=== PATIENT | female | born 1965 | race Two or more races ===

== ENCOUNTER → 2017-05-11 | Outpatient (CLI) | payer BC ==
[~2017-05-11] MED LIST: CIPR500 PO; CYCL10 PO; Copegus200 MG PO; LIDO5TP TOP; OXYACE5T PO; OXYC5; RIFA300 PO; RXTRAM50 PO; SOVALDI400 MG PO; SULTRIDS PO; TRAM50 PO; Voltaren100 GM TP
== END ==
LOC: LAB SHORT 14:00
DX: N39.0 Urinary tract infection, site not specified (principal)
CPT/HCPCS: 87077; 87086; 87186

== ENCOUNTER 2019-03-03 09:04 | Day surgery (SDC) | payer BC ==
[~2019-03-03] VITALS: Ht 160 cm; Wt 88.5 kg
[~2019-03-03 09:04] MED LIST changes: +IBUP800; +METF500 PO; -OXYC5; +OXYC5 PO
--- NOTE | 2019-03-03 10:39 | NUR ---
03/03/19 1039 AMANDA FUNG HCG S.G 1.005 TOO DILUTE PATIENT SIGNED REFUSAL FORM DR FARLEY WAS FINE
== END 2019-03-03 11:38 | disposition home or self-care (01) ==
LOC: ORSCSDS 09:04
PROVIDERS: Internal Medicine Gastroenterology
PROC: 0DJ08ZZ Inspection of Upper Intestinal Tract, Via Natural or Artificial Opening Endoscopic (ICD-10-PCS; principal; 2019-03-03 11:00)
DX: Z13.810 Encounter for screening for upper gastrointestinal disorder (principal); I85.00 Esophageal varices without bleeding; K74.60 Unspecified cirrhosis of liver; K21.9 Gastro-esophageal reflux disease without esophagitis; F32.9 Major depressive disorder, single episode, unspecified; E11.9 Type 2 diabetes mellitus without complications; K76.6 Portal hypertension; Z86.19 Personal history of other infectious and parasitic diseases; G47.39 Other sleep apnea; Z79.84 Long term (current) use of oral hypoglycemic drugs; Z79.899 Other long term (current) drug therapy
CPT/HCPCS: 82947; J2704; J7120

== ENCOUNTER 2020-02-09 08:11 | Day surgery (SDC) | payer BC ==
[~2020-02-09] VITALS: Ht 157.5 cm; Wt 98.1 kg
[~2020-02-09 08:11] MED LIST changes: +NADO20 PO; +NASONEX17 G1; +Ranitidine HCl150 M1 PO
--- NOTE | 2020-02-09 10:22 | NUR ---
02/09/20 1022 Olga Harkins PT HAD NEW ONSET OF RIGHT HIP PAIN POST PROCEDURE. DURING POSITIONING FOR EGD ON LEFT SIDE, PT STATED HER HIP HURT AND SHE IS DUE FOR A HIP REPLACEMENT. ADDITIONAL PILLOWS AND REPOSITIONING OFFERED.
== END 2020-02-09 10:18 | disposition home or self-care (01) ==
LOC: ORSCSDS 08:11
PROVIDERS: Internal Medicine Gastroenterology
PROC: 0DJ08ZZ Inspection of Upper Intestinal Tract, Via Natural or Artificial Opening Endoscopic (ICD-10-PCS; principal; 2020-02-09 10:00)
DX: K74.60 Unspecified cirrhosis of liver (principal); Z13.810 Encounter for screening for upper gastrointestinal disorder; I85.00 Esophageal varices without bleeding; K76.6 Portal hypertension; K31.89 Other diseases of stomach and duodenum; K21.9 Gastro-esophageal reflux disease without esophagitis; F32.9 Major depressive disorder, single episode, unspecified; Z86.19 Personal history of other infectious and parasitic diseases; E11.9 Type 2 diabetes mellitus without complications; Z79.84 Long term (current) use of oral hypoglycemic drugs
CPT/HCPCS: 82947; J2704; J7120

== ENCOUNTER 2021-04-13 19:57 | Emergency (ER) | payer BC ==
[~2021-04-13] VITALS: Ht 157.5 cm; Wt 79.8 kg
[~2021-04-13 19:57] MED LIST changes: +FENT200LOZ; +Promethegan12.5 MG PR
[2021-04-13 20:49] LABS: BASOPHILS ABSOLUTE AUTO 0.02 K/mm3 (0.00-0.23); BASOPHILS PERCENT AUTO 0 % (0-2); EOSINOPHILS PERCENT AUTO 0 % (0-6); Hematocrit 39.5 % (33.0-51.0); Hemoglobin 13.3 g/dL (11.5-16.0); IMMATURE GRAN ABSOLUTE AUTO 0.22 K/mm3 (0.00-0.10); IMMATURE GRAN PERCENT AUTO 2 % (0-1); LYMPHOCYTES ABSOLUTE AUTO 1.61 K/mm3 (0.84-5.20); LYMPHOCYTES PERCENT AUTO 15 % (21-46); MONOCYTES ABSOLUTE AUTO 1.11 K/mm3 (0.16-1.47); MONOCYTES PERCENT AUTO 10 % (4-13); Mean Corpuscular HGB 29.7 pg (26.0-34.0); Mean Corpuscular HGB Conc 33.7 g/dL (31.5-36.5); Mean Corpuscular Volume 88 fL (80-100); Mean Platelet Volume 10.3 fL (9.1-12.4); NEUTROPHILS ABSOLUTE AUTO 7.75 K/mm3 (1.96-9.15); NEUTROPHILS PERCENT AUTO 72 % (41-73); Platelet Count 107 K/mm3 (150-400); RDW Coefficient Variation 14.5 % (11.7-14.2); RDW Standard Deviation 46.1 fL (35.1-46.3); Red Blood Cell Count 4.48 M/mm3 (3.80-5.20); White Blood Cell Count 10.71 K/mm3 (4.00-11.30)
[2021-04-13 20:58] LABS: Source, Urine Clean Catch
[2021-04-13 21:02] LABS: Appearance, Urine Hazy (Clear); Bilirubin, Urine Neg (Neg); Blood, Urine Neg (Neg); Color, Urine Yellow (P-Yellow); Glucose Qualitative, Urine Neg (Neg); Ketones, Urine Neg (Neg); Leukocyte Esterase, Urine 1+ (Neg); Nitrite, Urine Neg (Neg); Protein, Urine Neg (Neg); Specific Gravity, Urine 1.015 (1.003-1.022); Urobilinogen, Urine 2+ (Normal)
[2021-04-13 21:13] LABS: Alanine Aminotransfer (ALT/SGP 201 U/L (12-78); Albumin, Blood 2.6 g/dL (3.4-5.0); Albumin/Globulin Ratio 0.8 (0.8-1.8); Alk Phos 580 U/L (50-136); Anion Gap 6 mmol/L (6-16); Aspartate Aminotrans (AST/SGOT 141 U/L (12-37); Bilirubin, Total 1.1 mg/dL (0.1-1.0); Blood Urea Nitrogen 10 mg/dL (8-24); Bun/Creatinine Ratio 22.1 (12.0-20.0); CO2, Blood 28 mmol/L (21-32); Calcium, Blood 8.3 mg/dL (8.5-10.1); Chloride, Blood 104 mmol/L (98-108); Creatinine, Blood 0.45 mg/dL (0.40-1.00); Globulin, Blood 3.1 g/dL (2.2-4.0); Glomerular Filtration Rate >60 (60-); Glucose, Blood 203 mg/dL (70-99); Sodium, Blood 138 mmol/L (136-145); Total Protein, Blood 5.7 g/dL (6.4-8.2)
[2021-04-13 21:16] LABS: Bacteria Few /hpf; Red Blood Cells, Urine 0-2 /hpf (0-2); Squamous Epithelial Cells Few /hpf (Few)
[2021-04-13] MEDS ORDERED: CEPH500 PO (22:23)
== END 2021-04-13 23:04 | disposition home or self-care (01) ==
LOC: ER 19:57
PROVIDERS: Emergency Medicine
DX: N39.0 Urinary tract infection, site not specified (principal); E11.9 Type 2 diabetes mellitus without complications; K76.6 Portal hypertension; Z88.5 Allergy status to narcotic agent; Z88.6 Allergy status to analgesic agent; Z79.899 Other long term (current) drug therapy
CPT/HCPCS: 36415; 80053; 81001; 85025; 87077; 87086; 87186; 96365; 99283-25; A9270; J0696

== ENCOUNTER 2021-04-30 10:21 | Inpatient (IN) | payer BC ==
[~2021-04-30] VITALS: Ht 162.6 cm; Wt 76.9 kg
[~2021-04-30 10:21] MED LIST changes: +CEPH500 PO; -FENT200LOZ; -NADO20 PO; -OXYC5 PO
[2021-04-30 11:24] LABS: BASOPHILS ABSOLUTE AUTO 0.13 K/mm3 (0.00-0.23); BASOPHILS PERCENT AUTO 1 % (0-2); EOSINOPHILS ABSOLUTE AUTO 0.02 K/mm3 (0.00-0.68); EOSINOPHILS PERCENT AUTO 0 % (0-6); Hematocrit 47.7 % (33.0-51.0); Hemoglobin 16.6 g/dL (11.5-16.0); IMMATURE GRAN PERCENT AUTO 2 % (0-1); LYMPHOCYTES ABSOLUTE AUTO 2.84 K/mm3 (0.84-5.20); LYMPHOCYTES PERCENT AUTO 13 % (21-46); MONOCYTES PERCENT AUTO 11 % (4-13); Mean Corpuscular HGB 30.2 pg (26.0-34.0); Mean Corpuscular HGB Conc 34.8 g/dL (31.5-36.5); Mean Corpuscular Volume 87 fL (80-100); Mean Platelet Volume 9.8 fL (9.1-12.4); NEUTROPHILS ABSOLUTE AUTO 16.14 K/mm3 (1.96-9.15); NEUTROPHILS PERCENT AUTO 74 % (41-73); NRBC ABSOLUTE 0.03 K/mm3 (0.00-0.02); NRBC Auto 0.1 /100 WBC (0.0-0.2); Platelet Count 108 K/mm3 (150-400); RDW Coefficient Variation 15.2 % (11.7-14.2); RDW Standard Deviation 47.2 fL (35.1-46.3); White Blood Cell Count 21.93 K/mm3 (4.00-11.30)
[2021-04-30 12:06] LABS: Alanine Aminotransfer (ALT/SGP 74 U/L (12-78); Albumin, Blood 3.3 g/dL (3.4-5.0); Albumin/Globulin Ratio 1.1 (0.8-1.8); Alk Phos 749 U/L (50-136); Anion Gap 13 mmol/L (6-16); Aspartate Aminotrans (AST/SGOT 46 U/L (12-37); Bilirubin, Total 2.9 mg/dL (0.1-1.0); Blood Urea Nitrogen 26 mg/dL (8-24); Bun/Creatinine Ratio 58.2 (12.0-20.0); CO2, Blood 21 mmol/L (21-32); Calcium, Blood 8.5 mg/dL (8.5-10.1); Chloride, Blood 104 mmol/L (98-108); Creatinine, Blood 0.45 mg/dL (0.40-1.00); Globulin, Blood 3.1 g/dL (2.2-4.0); Glomerular Filtration Rate >60 (60-); Glucose, Blood 334 mg/dL (70-99); Potassium, Blood 4.2 mmol/L (3.5-5.5); Sodium, Blood 138 mmol/L (136-145); Total Protein, Blood 6.4 g/dL (6.4-8.2)
[2021-04-30] MEDS ORDERED: METF500 (13:09)
[2021-04-30] MEDS ORDERED: LEVE500 PO (13:31)
--- NOTE | 2021-04-30 18:42 | NUR ---
SHIFT SUMMARY PATIENT ADMITTED FROM ER AT 1745. PATIENT SETTLED INTO ROOM. PATIENT YELLING OUT IN PAIN, MEDICATED PER EMAR. FAMILY AT BEDSIDE TO TRANSLATE. PATIENT ONLY SPEAKS BELARUSIAN. PATIENT DENIES NAUSEA AND SHORTNESS OF BREATH. SEIZURE PADS PLACED. PATIENT ABLE TO SWALLOW MEDS WHOLE WITH APPLESAUCE. PATIENT DID NOT WANT TO EAT DINNER. PATIENT IS PLEASANT AND COOPERATIVE WITH CARE.
[2021-05-01 05:13] LABS: BASOPHILS ABSOLUTE AUTO 0.01 K/mm3 (0.00-0.23); BASOPHILS PERCENT AUTO 0 % (0-2); EOSINOPHILS PERCENT AUTO 0 % (0-6); Hemoglobin 12.3 g/dL (11.5-16.0); IMMATURE GRAN ABSOLUTE AUTO 0.04 K/mm3 (0.00-0.10); IMMATURE GRAN PERCENT AUTO 1 % (0-1); LYMPHOCYTES ABSOLUTE AUTO 1.06 K/mm3 (0.84-5.20); LYMPHOCYTES PERCENT AUTO 22 % (21-46); MONOCYTES ABSOLUTE AUTO 0.26 K/mm3 (0.16-1.47); MONOCYTES PERCENT AUTO 5 % (4-13); Mean Corpuscular HGB 30.1 pg (26.0-34.0); Mean Corpuscular HGB Conc 34.2 g/dL (31.5-36.5); Mean Corpuscular Volume 88 fL (80-100); Mean Platelet Volume 10.8 fL (9.1-12.4); NEUTROPHILS ABSOLUTE AUTO 3.49 K/mm3 (1.96-9.15); NEUTROPHILS PERCENT AUTO 72 % (41-73); RDW Coefficient Variation 15.2 % (11.7-14.2); RDW Standard Deviation 49.2 fL (35.1-46.3); Red Blood Cell Count 4.09 M/mm3 (3.80-5.20); White Blood Cell Count 4.86 K/mm3 (4.00-11.30)
--- NOTE | 2021-05-01 05:21 | NUR ---
PATIENT RESTED MOST OF THE SHIFT. Q2 HOUR TURN AND CHANGE. SON AT THE BEDSIDE TO HELP TRANSLATE. PT HAS EXTREME PAIN WITH ANY MOVEMENT. UNABLE TO GET UP TO THE BEDSIDE COMMODE DUE TO PAIN. NEDICATED PATIENT PER MAR TO HELP CONTROL PAIN. A&O X4 PANAMANIAN SPEAKING MOSTLY. VITALS REVIEWED WILL CONTINUE TO MONITOR.
[2021-05-01 05:28] LABS: Platelet Count 48 K/mm3 (150-400)
[2021-05-01 06:30] LABS: Anion Gap 8 mmol/L (6-16); Blood Urea Nitrogen 26 mg/dL (8-24); Bun/Creatinine Ratio 54.9 (12.0-20.0); CO2, Blood 27 mmol/L (21-32); Calcium, Blood 8.2 mg/dL (8.5-10.1); Chloride, Blood 107 mmol/L (98-108); Creatinine, Blood 0.47 mg/dL (0.40-1.00); Glomerular Filtration Rate >60 (60-); Glucose, Blood 196 mg/dL (70-99); Magnesium, Blood 1.9 mg/dL (1.6-2.4); Potassium, Blood 3.7 mmol/L (3.5-5.5); Sodium, Blood 142 mmol/L (136-145)
[2021-05-01] MEDS ORDERED: OXYC10TA19 PO (13:35)
[2021-05-01] MEDS ORDERED: DEXA4 PO (13:35)
[2021-05-01] MEDS ORDERED: NADO20 PO (13:37)
[2021-05-01] MEDS ORDERED: FENTANYL1 EA10 TD (13:37)
--- NOTE | 2021-05-01 17:28 | NUR ---
SHIFT [id number] Y F ADMITTED WITH EXACERBATION OF CHRONIC LOWER BACK PAIN R/T STAGE 4 BRAIN CA WITH METS TO SPINE AND SEIZURE AT HOME AND IN ER. PT IS A&O, PLEASANT & COOPERATIVE WITH CARE BUT VERY PAINFULL WITH ACTIVITY/MOVEMENT. NO SIEZURE ATIVITY NOTED SINCE ADMISSION. PT PAIN SEEMS ADEQUATLEY MANAGED LONG SHE IS LAYING IN BED. PLANS FOR PT TO D/C HOME SO SHE CAN GO TO OUTPATIENT RADIATION APT DISCUSSED. PT DOESN'T SEEM TO BE ABLE TO TOLERATE TRAVEL SITTING IN A CAR AT THIS TIME. D/C PLANNING PENDING ADEQUATE PAIN CONTROL AND ACTIVITY TOLERANCE. PT'S SON HAVE TAKEN TURNS SITTING WITH PT AND ASSISTING WITH CARE. NO OTHER CHANGES TO REPORT AT THIS TIME.
[2021-05-02 04:44] LABS: BASOPHILS ABSOLUTE AUTO 0.02 K/mm3 (0.00-0.23); BASOPHILS PERCENT AUTO 0 % (0-2); EOSINOPHILS PERCENT AUTO 0 % (0-6); Hematocrit 39.8 % (33.0-51.0); Hemoglobin 13.8 g/dL (11.5-16.0); IMMATURE GRAN ABSOLUTE AUTO 0.15 K/mm3 (0.00-0.10); IMMATURE GRAN PERCENT AUTO 1 % (0-1); LYMPHOCYTES ABSOLUTE AUTO 1.66 K/mm3 (0.84-5.20); LYMPHOCYTES PERCENT AUTO 14 % (21-46); MONOCYTES ABSOLUTE AUTO 0.98 K/mm3 (0.16-1.47); MONOCYTES PERCENT AUTO 9 % (4-13); Mean Corpuscular HGB 30.1 pg (26.0-34.0); Mean Corpuscular HGB Conc 34.7 g/dL (31.5-36.5); Mean Corpuscular Volume 87 fL (80-100); Mean Platelet Volume 10.1 fL (9.1-12.4); NEUTROPHILS ABSOLUTE AUTO 8.74 K/mm3 (1.96-9.15); NEUTROPHILS PERCENT AUTO 76 % (41-73); Platelet Count 73 K/mm3 (150-400); RDW Coefficient Variation 14.6 % (11.7-14.2); RDW Standard Deviation 46.5 fL (35.1-46.3); Red Blood Cell Count 4.58 M/mm3 (3.80-5.20); White Blood Cell Count 11.55 K/mm3 (4.00-11.30)
[2021-05-02 05:12] LABS: Alanine Aminotransfer (ALT/SGP 60 U/L (12-78); Albumin/Globulin Ratio 1.2 (0.8-1.8); Alk Phos 580 U/L (50-136); Anion Gap 9 mmol/L (6-16); Aspartate Aminotrans (AST/SGOT 32 U/L (12-37); Blood Urea Nitrogen 21 mg/dL (8-24); Bun/Creatinine Ratio 45.4 (12.0-20.0); CO2, Blood 25 mmol/L (21-32); Calcium, Blood 8.6 mg/dL (8.5-10.1); Chloride, Blood 104 mmol/L (98-108); Creatinine, Blood 0.46 mg/dL (0.40-1.00); Globulin, Blood 2.6 g/dL (2.2-4.0); Glomerular Filtration Rate >60 (60-); Glucose, Blood 193 mg/dL (70-99); Potassium, Blood 3.6 mmol/L (3.5-5.5); Sodium, Blood 138 mmol/L (136-145); Total Protein, Blood 5.6 g/dL (6.4-8.2)
--- NOTE | 2021-05-02 06:03 | NUR ---
PATIENT HAS BEEN A&O X4. SON AT THE BEDSIDE. PAIN IS SEVERE IN BACK WITH REPOSITIONING. PRN PAIN MEDICATIOSN ADMINISTERED PER MAR. VITALS REVIEWED. CALL LIGHT IN REACH BED IN LOWEST POSTTION.
[2021-05-02 10:59] LABS: Influenza A, PCR NEGATIVE (NEGATIVE); Influenza B, PCR NEGATIVE (NEGATIVE); Resp Syncytial Virus, PCR NEGATIVE (NEGATIVE); SARS-Cov-2 (COVID-19) PCR, MMC NEGATIVE (NEGATIVE)
--- NOTE | 2021-05-02 18:27 | NUR ---
SHIFT SUMMARY PT ASSISTED WITH TURNING IN BED AND BEING CLEANED UP. HAS IMPROVED SINCE LAST NIGHT PER SON. REPORTS SHE THINKS THE PAIN MEDS ARE HELPING. ADDED TORADOL TO PAIN MEDS. ONLY GIVEN DILAUDID ONCE. WORKED WITH O.T. THIS AFTERNOON AND REPORTEDLY ABLE TO SIT ON SIDE OF BED FOR 17 MINUTES. SON AT BEDSIDE THIS MORNING AND NOW DAUGHTER AT BEDSIDE THIS EVENING. FAMILY TAKING TURNS STAYING WITH PT DUE TO ILLNESS AND HELPING ENCOURAGE EATING AND ASSISTING WELL.
[2021-05-03 05:17] LABS: BASOPHILS PERCENT AUTO 0 % (0-2); EOSINOPHILS PERCENT AUTO 0 % (0-6); IMMATURE GRAN ABSOLUTE AUTO 0.06 K/mm3 (0.00-0.10); IMMATURE GRAN PERCENT AUTO 1 % (0-1); LYMPHOCYTES ABSOLUTE AUTO 0.86 K/mm3 (0.84-5.20); LYMPHOCYTES PERCENT AUTO 18 % (21-46); MONOCYTES ABSOLUTE AUTO 0.27 K/mm3 (0.16-1.47); MONOCYTES PERCENT AUTO 6 % (4-13); Mean Corpuscular HGB Conc 34.3 g/dL (31.5-36.5); Mean Corpuscular Volume 88 fL (80-100); Mean Platelet Volume 10.1 fL (9.1-12.4); NEUTROPHILS ABSOLUTE AUTO 3.73 K/mm3 (1.96-9.15); NEUTROPHILS PERCENT AUTO 76 % (41-73); Platelet Count 62 K/mm3 (150-400); RDW Coefficient Variation 14.6 % (11.7-14.2); RDW Standard Deviation 46.6 fL (35.1-46.3); White Blood Cell Count 4.92 K/mm3 (4.00-11.30)
--- NOTE | 2021-05-03 06:36 | NUR ---
PATIENT WAS ABLE TO REST MOST OF NIGHT. AT THE END OF SHIFT PRN PAIN MEDICATION WAS REQUESTED. PATIENT NOW HAS A POWERGLIDE FOR ACCESS. VITALS REVIEWED CALL LIGHT IN REACH BED IN LOWEST POSITION.
[2021-05-03] MEDS ORDERED: DOCU100 PO (15:45)
[2021-05-03] MEDS ORDERED: DULO30 PO (15:45)
[2021-05-03] MEDS ORDERED: INSULIN LI100 UNIT/8 SC (15:47)
[2021-05-03] MEDS ORDERED: LORAZEPAM2 MG/1 M1 IV (15:49)
[2021-05-03] MEDS ORDERED: NALOXONE H0.4 MG/1 M IV (15:50)
[2021-05-03] MEDS ORDERED: KEPPRA100 MG/1 M IV (15:51)
[2021-05-03] MEDS ORDERED: SENN187 PO (15:52)
[2021-05-03] MEDS ORDERED: MIRALAX17 GM PO (15:52)
[2021-05-03] MEDS ORDERED: ONDANSETRON4 MG/2 M2 IV (15:53)
--- NOTE | 2021-05-03 17:44 | NUR ---
REPORT CALLED TO JUSTYN AT [facility] FOR COBRA TRANSFER. DILAUDID AND ZOFRAN GIVEN PRIOR TO LEAVING. SON AT BEDSIDE UNTIL [facility] HERE TO PICK PT UP AND THEN LEFT WITH PLAN TO ARRIVE AT [facility] SOON AFTER PT. TO [facility] VIA GURNEY.
== END 2021-05-03 16:41 | disposition short-term general hospital (02) | DRG 101 ==
LOC: ER 10:21 → ERHOLD 14:48 → MEDS 17:53
PROVIDERS: Emergency Medicine; Family Medicine; Student in an Organized Health Care Education/Training Program; ADMIT Internal Medicine
DX: G40.409 Other generalized epilepsy and epileptic syndromes, not intractable, without status epilepticus (principal); C79.51 Secondary malignant neoplasm of bone; C79.31 Secondary malignant neoplasm of brain; R65.10 Systemic inflammatory response syndrome (SIRS) of non-infectious origin without acute organ dysfunction; Z20.822 Contact with and (suspected) exposure to COVID-19; D69.6 Thrombocytopenia, unspecified; G89.3 Neoplasm related pain (acute) (chronic); B18.2 Chronic viral hepatitis C; M54.9 Dorsalgia, unspecified; E11.9 Type 2 diabetes mellitus without complications; Z85.118 Personal history of other malignant neoplasm of bronchus and lung; Z92.3 Personal history of irradiation; Z28.21 Immunization not carried out because of patient refusal; Z88.5 Allergy status to narcotic agent; Z79.899 Other long term (current) drug therapy
CPT/HCPCS: 0241U; 36415; 70450; 80048; 80053; 82550; 82947; 83036; 83605; 83735; 85025; 93005; 93010; 96374; 96375; 97110; 97161; 97165; 97530; 99285-25; A9270; C1751; J1100; J1170; J1650; J1885; J1953; J2060; J2405; J7030; J7050

== ENCOUNTER 2021-05-30 07:57 | Emergency (ER) | payer BC ==
[~2021-05-30] VITALS: Ht 165.1 cm; Wt 77.1 kg
[~2021-05-30 07:57] MED LIST changes: +DEXA4 PO; +DOCU100 PO; +DULO30 PO; +FENTANYL1 EA10 TD; +INSULIN LI100 UNIT/8 SC; +KEPPRA100 MG/1 M IV; +LEVE500 PO; +LORAZEPAM2 MG/1 M1 IV; +METF500; +MIRALAX17 GM PO; +NADO20 PO; +NALOXONE H0.4 MG/1 M IV; +ONDANSETRON4 MG/2 M2 IV; +OXYC10TA19 PO; +SENN187 PO
[2021-05-30] MEDS ORDERED: MORP20L PO (08:58)
[2021-05-30] MEDS ORDERED: Transderm-Scop1 EACH TOP (08:58)
[2021-05-30] MEDS ORDERED: LORAZEPAM2 MG/1 M1 PO (08:58)
[2021-05-30] MEDS ORDERED: FENTANYL1 EAC7 TOP (09:26)
--- NOTE | 2021-05-30 11:24 | NUR ---
Late Entry from 05/30/2021 at 0924: Received referral from Palliative Care Nurse (Tripp Tolbert) on 05/30/2021. Patient is to discharge from the ED on 05/30/2021 with orders for hospice and family elected [facility]. Gathered supporting documentation for referral (face sheet, labs, imaging, progress notes, palliative care note, and H&P) and sent to [facility] mule driver (Musa Mckeon) for review of hospice appropriateness and ability to accept patient onto service post discharge. Will await further information from hospice mule driver regarding the above. Fanny Díaz Referral Liaison
--- NOTE | 2021-05-30 11:25 | NUR ---
Late Entry from 05/30/2021 at 0945: Received notification from [facility] bindery machine setter (Musa Mckeon) that patient is hospice appropriate and able to be accepted onto service post discharge. Will meet with patient and family today to further discuss the above. Will continue to monitor and follow for discharge. Fanny Díaz Referral Liaison
--- NOTE | 2021-05-30 11:26 | NUR ---
Late Entry from 05/30/2021 at 1000: Met with patient and patient's daughter (Shanda Morales) to further discuss hospice services and the election of [facility]. Patient and daughter are agreeable to the above. Discussed what hospice is (reserved for patients with a terminal diagnosis with life expectancy of 6 months or less). Discussed that some patients exceed the 6 months expectancy and stay on service and some patients stabilize and come off hospice. Patient and daughter verbalized understanding of the above. Discussed with patient and daughter that hospice service focuses on quality of life at the end of life and that rather than measuring the quantity of days, the quality of those days would be measured. Discussed with patient and daughter that with hospice service the goal would be to keep the patient out of the hospital and comfortable by managing symptoms at home. Patient and daughter verbalized understanding. Discussed the people, prescriptions, and equipment of hospice. People- discussed the team of people and their roles (RNs, chaplains, therapists, LCSWs, CNAs, and volunteers) that would be there to support not only the patient but also their family during this time. Explained to the patient and daughter that the team would be custom tailored to the patient and family's needs during this time. Patient and daughter verbalized understanding. Prescriptions- discussed that we utilize a mail order pharmacy ([facility]) to provide medications related to the hospice diagnosis and for symptom management. All other medications that patient chose to stay on would be patient's and/or patient's family's responsibility to provide and pay for. Patient and daughter verbalized understanding. Discussed that upon discharge patient would be given three prescriptions, one for morphine 20mg/mL #30mL (0.25mL - 1mL PO/SL Q1H PRN SOB/pain), one for lorazepam 2mg/mL #30mL (1mL PO/SL Q4H PRN anxiety), and one for hyoscyamine 0.125mg SL tablets #30 (1 SL Q2H PRN secretions). Per bedside RN (Kristy) the above controlled prescriptions were e-scribed by provider to patient's preferred pharmacy ([facility]). Explained to the patient and daughter that as patient would not yet be admitted to hospice service at the time of discharge those prescriptions would be patient/patient's family's responsibility to fill and pay for. Patient and daughter verbalized understanding. Equipment- discussed with patient and daughter that we contract through [facility] to provide DME such as hospital beds, commodes, etc. to patient. Explained to patient and daughter that as james was not being admitted to hospice services until Saturday that the admitting hospice massage therapist would assess and order equipment at that time. Patient and daughter verbalized understanding. Discussed with patient and daughter that once patient was admitted onto hospice services the goal would be for them to contact us ([facility]) over contacting 911 or presenting back to the hospital/ED. Patient and daughter verbalized understanding. Offered a chance for patient and daughter to ask questions regarding the above of which there were none. No further interventions required. Fanny Díaz Referral Liaison
--- NOTE | 2021-05-30 11:27 | NUR ---
Spoke with ED Provider Margy and discussed case. 55 year old female with metastatic cancer to the ED with unmanaged pain and anxiety. Family has arranged for [facility] to admit onto services on . Pt resting on gurney with daughter Shanda at bedside. Shanda reports Pt struggles with taking her pills. Pt has required increase in her pain medication over the last week needing her max dose every 6 hours. Shanda is requesting hospice to admit Pt sooner and goals are for Pt to go home today. She is agreeable for another hospice agency if they can admit sooner. Spoke with Dhara at [facility] who reports is the soonest they can admit. Called and spoke with [facility] and [facility]. [facility] can admitt possibly this afternoon or tomorrow. [facility] can admitt tomorrow. Relayed information to Shanda with family chooses [facility]. Spoke with [place] and relayed family's request. Spoke with ED Provider Margy and reviewed medications for comfort. Margy will write prescriptions for comfot medication to go home with including Roxanol, Ativan, and an increase in Pt's Fentanyl Patch from 25mcg to 50mcg Q 3 days. Spoke with Pt's ED RN Kristy and discussed case. Palliative Care will remain available.
[2021-05-30] MEDS ORDERED: KEPPRA100 MG/1 M PO (11:57)
== END 2021-05-30 13:18 | disposition home or self-care (01) ==
LOC: ER 07:57
DX: Z51.81 Encounter for therapeutic drug level monitoring (principal); E11.9 Type 2 diabetes mellitus without complications; I10 Essential (primary) hypertension; Z85.118 Personal history of other malignant neoplasm of bronchus and lung; Z79.4 Long term (current) use of insulin; Z79.899 Other long term (current) drug therapy; Z88.5 Allergy status to narcotic agent; Z88.6 Allergy status to analgesic agent
CPT/HCPCS: 99282; A9270